=== PATIENT | female | born 1995 | race African-American/Black ===

== ENCOUNTER 2022-12-21 22:25 | Emergency (ER) | payer BC, SELFPAY ==
[2022-12-21 22:27] VITALS: BP 123/78; PULSE 77; RESP 16; TEMP 36.4; O2SAT 95; BMI 34.4
--- NOTE | 2022-12-21 22:27 | CRLHL7_ITS ---
For Patients: As a result of the Century Cures Act, medical imaging exams and procedure reports are released immediately into your electronic medical record. You may view this report before your referring provider. If you have questions, please contact your health care provider. Indication: Injury of left ankle. Technique: Left ankle 3 views. Comparison: None. Findings: Bones: Alignment is normal. No fractures or bone lesions. Joint spaces: Unremarkable. Soft tissues: Unremarkable. Impression: No sign of acute injury. Dictated by Gagan Youssef MD @ 12/22/2022 12:20:15 AM (Electronically Signed)
--- NOTE | 2022-12-21 23:44 | ED.GENADULT ---
HPI - General Adult General Date Seen: 12/21/22 Chief complaint: Extremity Pain/Injury, Lower Stated complaint: Sprained her L ankle Time Seen by Provider: 12/21/22 22:26 Source: patient Mode of arrival: ambulatory Limitations: no limitations History of Present Illness HPI narrative: Patient is a 27-year-old woman who rolled her left ankle earlier today. She says she was moving some things and stepped into a hole. She had immediate pain in her lateral ankle, continued to do some moving for a while but it got more sore and more swollen. She was injured about 2:00 p.m., presents to the ER at 10:30 p.m.. No other injuries or complaints. Feels like her toes are a little numb. Related Data Home Medications Medication Instructions Recorded Confirmed No Known Home Medications 12/21/22 12/21/22 Allergies Allergy/AdvReac Type Severity Reaction Status Date / Time nickel Allergy Mild Hives Verified 12/21/22 22:32 Review of Systems Status of ROS: Reports: 6 or more systems reviewed and unremarkable except as noted in History and below PFSH [facility] Social History Smoking Status: Never smoker Do you use any of these nicotine containing products: None Second hand tobacco smoke exposure: No How often do you have a drink containing alcohol: never AUDIT-C Alcohol total score: 0 Non-prescribed substance use: denies use Exam Narrative: Exam Narrative: Vital signs reviewed In general, alert, nontoxic young woman. Extremities: Examination of the left ankle shows some swelling and tenderness over the lateral malleolus and anterior talofibular ligaments. Foot is nontender. Distal CMS normal. Skin: Warm dry and intact. Const: Vital Signs, click to edit/add: Vital Signs - 24 hr 12/21/22 22:27 Temperature 97.6 F Pulse Rate [Pulse Oximeter] 77 Respiratory Rate 16 Blood Pressure [Ri ght Upper Arm] 123/78 Pulse Oximetry 95 Oxygen Delivery Me thod Room Air Documenting provider has reviewed patient's vital signs: yes Course Course ED Course: X-rays of the left ankle by my review are negative for fracture. Final radiology read is likewise negative. Air splint placed here, discussed usual course of sprain. If not able to bear weight well in a week or so should be seen for repeat x-rays. I gave her work note for later this week if she is still having difficulty. Vital Signs Vital signs: Initial Vital Signs Temperature 97.6 F 12/21/22 22:27 Temperature Source Temporal Artery Scan 12/21/22 22:27 Pulse Rate 77 12/21/22 22:27 Respiratory Rate 16 12/21/22 22:27 Blood Pressure 123/78 12/21/22 22:27 Blood Pressure Mean 93 12/21/22 22:27 Blood Pressure Position Sitting 12/21/22 22:27 Pulse Oximetry 95 12/21/22 22:27 Oxygen Delivery Method Room Air 12/21/22 22:27 Vital Signs Temperature 97.6 F 12/21/22 22:27 Pulse Rate 77 12/21/22 22:27 Respiratory Rate 16 12/21/22 22:27 Blood Pressure 123/78 12/21/22 22:27 Pulse Oximetry 95 12/21/22 22:27 Oxygen Delivery Method Room Air 12/21/22 22:27 Temperature 97.6 F 12/21/22 22:27 Pulse Rate 77 12/21/22 22:27 Respiratory Rate 16 12/21/22 22:27 Blood Pressure 123/78 12/21/22 22:27 Pulse Oximetry 95 12/21/22 22:27 Oxygen Delivery Method Room Air 12/21/22 22:27 Discharge Plan Discharge Clinical Impression: Ankle sprain and strain Patient Disposition: Home, Self-Care Condition: Stable Instructions: Ankle Sprain (ED) Additional Instructions: Air splint when ambulatory for the next week or so, ice, elevation, ibuprofen and/or Tylenol. Anticipate gradual improvement over the next couple of weeks. You should be able to bear weight without too much difficulty in a week or so, if not you should be seen for re-evaluation. Prescriptions: No Action No Known Home Medications Follow Up/Referrals: Alexa Andrews PA-C [Primary Care Provider] - Stand Alone Forms: [employer] Info Instructions
== END 2022-12-22 00:43 | disposition home or self-care (01) ==
PROVIDERS: Emergency Provider Emergency Medicine; PCP Physician Assistant Medical
DX: S93.402A Sprain of unspecified ligament of left ankle, initial encounter (principal)
CPT/HCPCS: 29515; 73610; 99283